=== PATIENT | female | born 1965 | race Caucasian/White ===

== ENCOUNTER 2021-04-03 18:31 | Inpatient (IN) | payer SELFPAY ==
[2021-04-03] MEDS ORDERED: Morphine 4 MG/ML VIAL ONE (19:32)
[2021-04-03 20:32] LABS: Hemoglobin 11.3 g/dL (12.0-15.5); Mean Corpuscular HGB CONC 32.1 g/dL (32.0-36.0); Mean Corpuscular Hemoglobin 26.2 pg (27.0-33.0); Mean Corpuscular Volume 81.5 fl (81.6-98.3); Mean Platelet Volume 9.8 fl (7.4-10.4); Platelet Count 345 10x3/uL (150-450); Red Blood Cell (RBC) Count 4.32 10x6/uL (3.90-5.03); White Blood Cell (WBC) Count 12.8 10x3/uL (3.5-10.5)
[2021-04-03 20:33] LABS: ALT (SGPT) 32 U/L (8-55); AST (SGOT) 26 U/L (5-34); Albumin 3.8 g/dL (3.5-5.0); Alkaline Phosphatase 178 U/L (40-110); Anion Gap 19 mmol/L (10-20); BUN (Urea Nitrogen) 21 mg/dL (9.8-20.1); Bilirubin, Total 0.9 mg/dL (0.2-1.2); Calc. Creatinine Clearance 0 mL/min (70-130); Calcium 8.9 mg/dL (7.8-10.44); Carbon Dioxide 23 mmol/L (22-29); Chloride 96 mmol/L (98-107); Globulin 3.9 g/dL (2.4-3.5); Glucose 111 mg/dL (70-105); Lipase 12 U/L (8-78); Potassium 3.6 mmol/L (3.5-5.1); Protein, Total 7.7 g/dL (6.0-8.3); Sodium 134 mmol/L (136-145)
[2021-04-03 22:04] LABS: Bilirubin Neg (Negative); Blood, Urine 50 (Negative); Clarity Slightly Cloudy (Clear); Glucose, Urine (Dipstick) Normal (Negative); Ketone, Urine 50 mg/dL (Negative); Leukocyte Negative (Negative); Nitrite Negative (Negative); Protein, Urine (Dipstick) 100 mg/dl (Neg-Trace)
[2021-04-03 22:34] LABS: Bacteria/HPF 3+ HPF (None Seen); RBC/HPF 0-3 HPF (0-3); Squamous Epithelial 0-3 HPF (0-3)
[2021-04-03 22:35] LABS: Mucous/LPF 1+ LPF (<2+)
[2021-04-03 22:46] LABS: Lymphocytes 3 % (21-51)
[2021-04-03 22:47] LABS: Band 29 % (5-11); Reactive Lymphocytes 2 % (0-10)
[2021-04-03 22:48] LABS: Metamyelocyte 2 % (0-0); Monocytes 4 % (0-10); Neutrophil 60 % (42-75)
[2021-04-03 22:50] LABS: Anisocytosis SLIGHT = 6-15 cells (100X) (0-5/hpf); Dohle Bodies SLIGHT; Microcytosis SLIGHT = 6-15 cells (100X) (0-5/hpf); Platelet Morphology Comment Appears Adequate; Toxic Granulation SLIGHT
[2021-04-03 22:51] LABS: MDiff Complete? YES; Platelet Clumps SLIGHT
[2021-04-03] MEDS ORDERED: Piperacillin/Tazobactam 4.5 GM VIAL ONE (23:43)
[2021-04-04 01:17] VITALS: BMI 23.8
[2021-04-04 01:22] LABS: SARS-CoV-2 NAA Rapid Test Not Detected (NotDetected)
[2021-04-04] MEDS ORDERED: Ondansetron PF 4 MG/2 ML Vial IVP PRN ×2 (01:26→09:21)
[2021-04-04] MEDS ORDERED: Acetaminophen 325 MG TAB PO PRN (01:27)
[2021-04-04] MEDS ORDERED: Sodium Chloride 0.9% 1,000 ML IV SCH (01:30)
[2021-04-04] MEDS ORDERED: Piperacillin/Tazobactam 3.375 GM in Sodium Chloride 0.9% 100 ML IVPB SCH ×2 (05:00→10:30)
[2021-04-04 08:34] LABS: Hemoglobin 9.6 g/dL (12.0-15.5); Mean Corpuscular HGB CONC 32.9 g/dL (32.0-36.0); Mean Corpuscular Hemoglobin 26.4 pg (27.0-33.0); Mean Corpuscular Volume 80.2 fl (81.6-98.3); Mean Platelet Volume 9.7 fl (7.4-10.4); Platelet Count 268 10x3/uL (150-450); RBC Distribution Width 14.4 % (11.5-14.5); Red Blood Cell (RBC) Count 3.64 10x6/uL (3.90-5.03); White Blood Cell (WBC) Count 11.6 10x3/uL (3.5-10.5)
[2021-04-04 08:54] LABS: MDiff Complete? YES
[2021-04-04 09:01] LABS: Anion Gap 18 mmol/L (10-20); BUN (Urea Nitrogen) 16 mg/dL (9.8-20.1); Calc. Creatinine Clearance 84 mL/min (70-130); Calcium 7.2 mg/dL (7.8-10.44); Carbon Dioxide 18 mmol/L (22-29); Chloride 104 mmol/L (98-107); Glucose 93 mg/dL (70-105); Potassium 3.9 mmol/L (3.5-5.1); Sodium 136 mmol/L (136-145)
[2021-04-04 09:02] LABS: Band 13 % (5-11); Lymphocytes 6 % (21-51); Monocytes 3 % (0-10); Neutrophil 78 % (42-75)
[2021-04-04 09:04] LABS: Hypochromia SLIGHT = 6-15 cells (100X) (0-5/hpf); Polychromasia SLIGHT = 2-3 cells (100X) (0-2/hpf)
[2021-04-04 09:05] LABS: Anisocytosis SLIGHT = 6-15 cells (100X) (0-5/hpf); Dohle Bodies SLIGHT; Microcytosis SLIGHT = 6-15 cells (100X) (0-5/hpf); Platelet Morphology Comment Appears Adequate; Toxic Granulation SLIGHT
[2021-04-04] MEDS ORDERED: Promethazine HCl 25 MG/ML VIAL IM PRN (09:21)
[2021-04-04] MEDS ORDERED: hydrALAZINE 20 MG/ML VIAL SLOW IVP PRN (09:21)
[2021-04-04] MEDS ORDERED: Enoxaparin Sodium 40 MG/0.4 ML SYRINGE SC SCH (10:00)
[2021-04-04] MEDS: D5 1/2 NS w/20 mEq KCL 1,000 ML IV SCH ×2 (11:13→16:52)
[2021-04-04] MEDS: Piperacillin/Tazobactam 3.375 GM in Sodium Chloride 0.9% 100 ML IVPB SCH ×2 (14:40→21:26)
[2021-04-04] MEDS: Famotidine 20 MG TAB PO SCH (21:16)
[2021-04-05] MEDS: Famotidine/PF 20 mg/2ml Vial SLOW IVP SCH ×3 (03:15→20:31)
[2021-04-05 04:25] LABS: Hemoglobin 8.8 g/dL (12.0-15.5); Mean Corpuscular Hemoglobin 26.1 pg (27.0-33.0); Mean Corpuscular Volume 81.6 fl (81.6-98.3); Mean Platelet Volume 9.8 fl (7.4-10.4); Platelet Count 295 10x3/uL (150-450); RBC Distribution Width 14.7 % (11.5-14.5); Red Blood Cell (RBC) Count 3.37 10x6/uL (3.90-5.03); White Blood Cell (WBC) Count 12.3 10x3/uL (3.5-10.5)
[2021-04-05 04:38] LABS: Anion Gap 13 mmol/L (10-20); BUN (Urea Nitrogen) 12 mg/dL (9.8-20.1); Calc. Creatinine Clearance 81 mL/min (70-130); Carbon Dioxide 21 mmol/L (22-29); Chloride 106 mmol/L (98-107); Glucose 206 mg/dL (70-105); Potassium 3.3 mmol/L (3.5-5.1); Sodium 137 mmol/L (136-145)
[2021-04-05 05:02] LABS: Band 26 % (5-11); Lymphocytes 5 % (21-51); Monocytes 4 % (0-10); Myelocyte 1 % (0-0); Neutrophil 63 % (42-75); Reactive Lymphocytes 1 % (0-10)
[2021-04-05 05:04] LABS: Anisocytosis SLIGHT = 6-15 cells (100X) (0-5/hpf); Dohle Bodies SLIGHT; Hypochromia SLIGHT = 6-15 cells (100X) (0-5/hpf); Microcytosis SLIGHT = 6-15 cells (100X) (0-5/hpf); Toxic Granulation SLIGHT
[2021-04-05 05:05] LABS: Large Platelets SLIGHT; Platelet Clumps SLIGHT; Platelet Morphology Comment Appears Adequate
[2021-04-05 05:06] LABS: MDiff Complete? YES; Polychromasia SLIGHT = 2-3 cells (100X) (0-2/hpf)
[2021-04-05] MEDS: Piperacillin/Tazobactam 3.375 GM in Sodium Chloride 0.9% 100 ML IVPB SCH ×3 (05:06→20:31)
[2021-04-05] MEDS: D5 1/2 NS w/20 mEq KCL 1,000 ML IV SCH ×3 (06:51→17:08)
[2021-04-05] MEDS ORDERED: Acetaminophen 325 MG TAB PO PRN (09:25)
[2021-04-05] MEDS: Famotidine 20 MG TAB PO SCH ×2 (09:35→21:41)
[2021-04-05] MEDS: Enoxaparin Sodium 40 MG/0.4 ML SYRINGE SC SCH (09:35)
[2021-04-05] MEDS: Morphine 4 MG/ML VIAL SLOW IVP PRN (19:41)
[2021-04-06] MEDS ORDERED: D5 1/2 NS w/20 mEq KCL 1,000 ML ONE (00:08)
[2021-04-06] MEDS: D5 1/2 NS w/20 mEq KCL 1,000 ML IV SCH ×3 (03:17→21:09)
[2021-04-06] MEDS: Piperacillin/Tazobactam 3.375 GM in Sodium Chloride 0.9% 100 ML IVPB SCH ×3 (05:28→21:08)
[2021-04-06] MEDS: Famotidine/PF 20 mg/2ml Vial SLOW IVP SCH ×2 (09:20→21:07)
[2021-04-06] MEDS: Famotidine 20 MG TAB PO SCH ×2 (09:32→21:08)
[2021-04-06] MEDS: Enoxaparin Sodium 40 MG/0.4 ML SYRINGE SC SCH (13:43)
[2021-04-06] MEDS ORDERED: Dexamethasone 4 mg/ml Vial ONE (13:51)
[2021-04-06] MEDS ORDERED: Fentanyl 250 MCG/5 ML VIAL ONE (13:51)
[2021-04-06] MEDS ORDERED: Rocuronium Bromide 10 MG/ML (10ML VIAL) ONE (13:51)
[2021-04-06] MEDS ORDERED: Ondansetron PF 4 MG/2 ML Vial ONE (13:51)
[2021-04-06] MEDS ORDERED: PROPOFOL 20 ML ONE (13:51)
[2021-04-06] MEDS ORDERED: Midazolam HCl 2 mg/2 ml Vial ONE (13:51)
[2021-04-06] MEDS ORDERED: Lidocaine 1% PF 5 ML VIAL ONE (13:51)
[2021-04-06] MEDS ORDERED: PHENYLEPHRINE-NS 100 MCG/ML 10 ML SYRINGE ONE ×2 (14:45→17:20)
[2021-04-06] MEDS ORDERED: Dexmedetomidine 200 MCG/2 ML VIAL ONE (16:30)
[2021-04-06] MEDS ORDERED: Ketorolac Tromethamine 30 MG/ML VIAL ONE (16:35)
[2021-04-06] MEDS ORDERED: Glycopyrrolate 0.2 MG/ML 5 ML SYRINGE ONE (16:45)
[2021-04-06] MEDS ORDERED: HYDROcodone/Acetaminophen 5/325 mg Tablet PO PRN (17:56)
[2021-04-06] MEDS ORDERED: Morphine 2 MG/ML VIAL SLOW IVP PRN (17:56)
[2021-04-06] MEDS: Morphine 4 MG/ML VIAL SLOW IVP PRN (18:40)
[2021-04-07] MEDS: Morphine 4 MG/ML VIAL SLOW IVP PRN ×3 (00:59→20:22)
[2021-04-07 04:24] LABS: Hemoglobin 8.4 g/dL (12.0-15.5); Mean Corpuscular HGB CONC 32.6 g/dL (32.0-36.0); Mean Corpuscular Hemoglobin 25.9 pg (27.0-33.0); Mean Corpuscular Volume 79.6 fl (81.6-98.3); Platelet Count 388 10x3/uL (150-450); RBC Distribution Width 15.1 % (11.5-14.5); Red Blood Cell (RBC) Count 3.24 10x6/uL (3.90-5.03); White Blood Cell (WBC) Count 15.7 10x3/uL (3.5-10.5)
[2021-04-07 04:39] LABS: MDiff Complete? YES
[2021-04-07 04:43] LABS: Band 33 % (5-11); Lymphocytes 8 % (21-51); Monocytes 3 % (0-10); Myelocyte 1 % (0-0); Neutrophil 53 % (42-75); Reactive Lymphocytes 2 % (0-10)
[2021-04-07 04:44] LABS: Platelet Morphology Comment Appears Adequate
[2021-04-07 04:48] LABS: RBC Morphology Normal
[2021-04-07 05:01] LABS: Anion Gap 16 mmol/L (10-20); BUN (Urea Nitrogen) 15 mg/dL (9.8-20.1); Calc. Creatinine Clearance 88 mL/min (70-130); Calcium 7.2 mg/dL (7.8-10.44); Carbon Dioxide 21 mmol/L (22-29); Chloride 106 mmol/L (98-107); Glucose 210 mg/dL (70-105); Potassium 3.7 mmol/L (3.5-5.1); Sodium 139 mmol/L (136-145)
[2021-04-07] MEDS: Piperacillin/Tazobactam 3.375 GM in Sodium Chloride 0.9% 100 ML IVPB SCH ×3 (05:54→22:58)
[2021-04-07] MEDS: D5 1/2 NS w/20 mEq KCL 1,000 ML IV SCH ×2 (05:56→14:54)
[2021-04-07] MEDS ORDERED: Sodium Chloride 0.9% 500 ML IV SCH ×2 (09:00→17:00)
[2021-04-07] MEDS: Famotidine 20 MG TAB PO SCH ×2 (10:51→20:22)
[2021-04-07] MEDS: Polyethylene Glycol 3350 17 GM Packet PO SCH (10:51)
[2021-04-07] MEDS: Enoxaparin Sodium 40 MG/0.4 ML SYRINGE SC SCH (13:12)
[2021-04-07] MEDS: Famotidine/PF 20 mg/2ml Vial SLOW IVP SCH ×2 (13:12→22:59)
[2021-04-08] MEDS: D5 1/2 NS w/20 mEq KCL 1,000 ML IV SCH ×4 (01:14→23:07)
[2021-04-08 04:09] LABS: Anion Gap 11 mmol/L (10-20); BUN (Urea Nitrogen) 11 mg/dL (9.8-20.1); Calc. Creatinine Clearance 99 mL/min (70-130); Carbon Dioxide 25 mmol/L (22-29); Chloride 110 mmol/L (98-107); Glucose 112 mg/dL (70-105); Potassium 3.7 mmol/L (3.5-5.1); Sodium 142 mmol/L (136-145)
[2021-04-08 04:20] LABS: Hemoglobin 7.6 g/dL (12.0-15.5); Mean Corpuscular HGB CONC 31.9 g/dL (32.0-36.0); Mean Corpuscular Hemoglobin 25.8 pg (27.0-33.0); Mean Corpuscular Volume 80.7 fl (81.6-98.3); Mean Platelet Volume 9.5 fl (7.4-10.4); Platelet Count 390 10x3/uL (150-450); RBC Distribution Width 15.6 % (11.5-14.5); Red Blood Cell (RBC) Count 2.95 10x6/uL (3.90-5.03); White Blood Cell (WBC) Count 13.6 10x3/uL (3.5-10.5)
[2021-04-08 05:20] LABS: MDiff Complete? YES
[2021-04-08 05:24] LABS: Band 6 % (5-11); Lymphocytes 16 % (21-51); Monocytes 7 % (0-10); Neutrophil 71 % (42-75)
[2021-04-08 05:26] LABS: Hypochromia SLIGHT = 6-15 cells (100X) (0-5/hpf); Platelet Morphology Comment Appears Adequate
[2021-04-08] MEDS: Piperacillin/Tazobactam 3.375 GM in Sodium Chloride 0.9% 100 ML IVPB SCH ×3 (05:39→21:27)
[2021-04-08] MEDS: Enoxaparin Sodium 40 MG/0.4 ML SYRINGE SC SCH (09:27)
[2021-04-08] MEDS: Famotidine 20 MG TAB PO SCH ×2 (09:27→21:27)
[2021-04-08] MEDS: Polyethylene Glycol 3350 17 GM Packet PO SCH (09:27)
[2021-04-08] MEDS: Morphine 4 MG/ML VIAL SLOW IVP PRN (09:28)
[2021-04-08] MEDS: Famotidine/PF 20 mg/2ml Vial SLOW IVP SCH ×2 (09:28→21:29)
[2021-04-08] MEDS ORDERED: Piperacillin/Tazobactam 3.375 GM VIAL ONE (20:21)
[2021-04-08] MEDS ORDERED: D5 1/2 NS w/20 mEq KCL 1,000 ML ONE (21:56)
[2021-04-09] MEDS: Piperacillin/Tazobactam 3.375 GM in Sodium Chloride 0.9% 100 ML IVPB SCH ×3 (05:14→22:20)
[2021-04-09] MEDS: D5 1/2 NS w/20 mEq KCL 1,000 ML IV SCH ×2 (06:59→19:14)
[2021-04-09 08:52] LABS: Hemoglobin 8.3 g/dL (12.0-15.5); Mean Corpuscular HGB CONC 31.6 g/dL (32.0-36.0); Mean Corpuscular Hemoglobin 26.2 pg (27.0-33.0); Mean Platelet Volume 9.5 fl (7.4-10.4); Platelet Count 520 10x3/uL (150-450); RBC Distribution Width 15.4 % (11.5-14.5); Red Blood Cell (RBC) Count 3.17 10x6/uL (3.90-5.03); White Blood Cell (WBC) Count 10.9 10x3/uL (3.5-10.5)
[2021-04-09 08:58] LABS: Phosphorus 2.8 mg/dL (2.3-4.7)
[2021-04-09 08:59] LABS: Anion Gap 13 mmol/L (10-20); BUN (Urea Nitrogen) 6 mg/dL (9.8-20.1); Calc. Creatinine Clearance 93 mL/min (70-130); Calcium 7.5 mg/dL (7.8-10.44); Carbon Dioxide 26 mmol/L (22-29); Chloride 104 mmol/L (98-107); Glucose 142 mg/dL (70-105); Potassium 3.6 mmol/L (3.5-5.1); Sodium 139 mmol/L (136-145)
[2021-04-09 09:10] LABS: MDiff Complete? YES
[2021-04-09 09:14] LABS: Band 3 % (5-11); Eosinophils 3 % (0-10); Lymphocytes 12 % (21-51); Metamyelocyte 1 % (0-0); Monocytes 6 % (0-10); Neutrophil 75 % (42-75); Nucleated RBC 2 % (0)
[2021-04-09] MEDS ORDERED: D5 1/2 NS w/20 mEq KCL 1,000 ML IV SCH (09:15)
[2021-04-09 09:16] LABS: Platelet Morphology Comment Appears Increased
[2021-04-09 09:17] LABS: Hypochromia SLIGHT = 6-15 cells (100X) (0-5/hpf); Polychromasia SLIGHT = 2-3 cells (100X) (0-2/hpf)
[2021-04-09] MEDS: Enoxaparin Sodium 40 MG/0.4 ML SYRINGE SC SCH (10:21)
[2021-04-09] MEDS: Polyethylene Glycol 3350 17 GM Packet PO SCH (10:22)
[2021-04-09] MEDS: Famotidine 20 MG TAB PO SCH ×2 (10:22→22:46)
[2021-04-09] MEDS: Famotidine/PF 20 mg/2ml Vial SLOW IVP SCH ×2 (12:35→22:21)
[2021-04-10] MEDS: D5 1/2 NS w/20 mEq KCL 1,000 ML IV SCH (06:07)
[2021-04-10] MEDS: Piperacillin/Tazobactam 3.375 GM in Sodium Chloride 0.9% 100 ML IVPB SCH ×3 (06:08→21:36)
[2021-04-10] MEDS ORDERED: Morphine 4 MG/ML VIAL SLOW IVP SCH (07:15)
[2021-04-10] MEDS: Enoxaparin Sodium 40 MG/0.4 ML SYRINGE SC SCH (10:24)
[2021-04-10] MEDS: Polyethylene Glycol 3350 17 GM Packet PO SCH (10:24)
[2021-04-10] MEDS: Famotidine 20 MG TAB PO SCH ×2 (10:24→21:37)
[2021-04-10] MEDS: Famotidine/PF 20 mg/2ml Vial SLOW IVP SCH ×2 (11:26→21:36)
[2021-04-11] MEDS: Piperacillin/Tazobactam 3.375 GM in Sodium Chloride 0.9% 100 ML IVPB SCH (05:42)
[2021-04-11] MEDS: Famotidine 20 MG TAB PO SCH (12:11)
[2021-04-11] MEDS: Enoxaparin Sodium 40 MG/0.4 ML SYRINGE SC SCH (12:11)
[2021-04-11] MEDS: Polyethylene Glycol 3350 17 GM Packet PO SCH (12:11)
[2021-04-11 19:43] VITALS: TEMP 97.8
[2021-04-11 19:44] VITALS: BP 117/62
== END 2021-04-11 15:55 | disposition home or self-care (01) | DRG 329 ==
LOC: CSHERS 18:31 → CSHTELE 04-04 01:07
PROVIDERS: ADMIT Specialist; ATTEND Specialist
PROC: 0DTN0ZZ Resection of Sigmoid Colon, Open Approach (ICD-10-PCS; principal; 2021-04-06)
PROC: 0D1E0Z4 Bypass Large Intestine to Cutaneous, Open Approach (ICD-10-PCS; 2021-04-06)
PROC: 0W9G0ZZ Drainage of Peritoneal Cavity, Open Approach (ICD-10-PCS; 2021-04-06)
PROC: 0DQP0ZZ Repair Rectum, Open Approach (ICD-10-PCS; 2021-04-06)
DX: K57.20 Diverticulitis of large intestine with perforation and abscess without bleeding (principal); K65.1 Peritoneal abscess; C18.7 Malignant neoplasm of sigmoid colon; C77.2 Secondary and unspecified malignant neoplasm of intra-abdominal lymph nodes; Z20.822 Contact with and (suspected) exposure to COVID-19
CPT/HCPCS: 36415; 74177; 80048; 80053; 81003; 81015; 82378; 83690; 83735; 84100; 85025; 86850; 86900; 86901; 88309; 94760; 96365; 96375; J1100; J1650; J1885; J2250; J2270; J2405; J2543; J2704; J3010; J3480; J3490; J7030; S0028; U0002

== ENCOUNTER 2021-05-03 08:15 | Outpatient (CLI) | payer SELFPAY ==
[2021-05-04 10:59] LABS: SARS-CoV-2 PCR by NAA Not Detected (NotDetected)
== END 2021-05-03 08:16 | disposition home or self-care (01) ==
LOC: CSHLAB 08:15
PROVIDERS: ATTEND Surgery
DX: Z20.822 Contact with and (suspected) exposure to COVID-19 (principal); C18.7 Malignant neoplasm of sigmoid colon
CPT/HCPCS: U0003; U0005

== ENCOUNTER 2021-05-04 06:27 | Day surgery (SDC) | payer OTHER ==
[2021-04-30 14:59] VITALS: BMI 23.0
[2021-05-04] MEDS ORDERED: EPINEPHrine 1 MG/ML AMP ONE (06:32)
[2021-05-04] MEDS ORDERED: Bupivacaine 0.25% HCL 30 ML VIAL ONE (06:32)
[2021-05-04] MEDS ORDERED: Lidocaine 2% PF 5 ML VIAL ONE (07:06)
[2021-05-04] MEDS ORDERED: Fentanyl 100 MCG/2 ML VIAL ONE (07:06)
[2021-05-04] MEDS ORDERED: Dexamethasone 4 mg/ml Vial ONE (07:06)
[2021-05-04] MEDS ORDERED: Ondansetron PF 4 MG/2 ML Vial ONE (07:06)
[2021-05-04] MEDS ORDERED: PROPOFOL 40 ML ONE (07:06)
[2021-05-04] MEDS ORDERED: ePHEDrine Sulfate 50 MG/10 ML VIAL ONE (07:40)
== END 2021-05-04 09:10 | disposition home or self-care (01) ==
LOC: CSHSDC 06:27
PROVIDERS: ATTEND Surgery
DX: C18.7 Malignant neoplasm of sigmoid colon (principal); Z93.3 Colostomy status
CPT/HCPCS: 76000; C1788; J0171; J0690; J1100; J1642; J2001; J2405; J2704; J3010; S0020

== ENCOUNTER 2021-05-06 13:29 | Inpatient (IN) | payer OTHER, SELFPAY ==
[2021-05-06 14:00] LABS: #Monocytes 0.3 10x3/uL (0.0-1.1); #Neutrophils 5.1 10x3/uL (1.5-8.4); %Basophils 0.1 % (0.0-2.0); %Lymphocytes 29.6 % (18.0-47.0); %Monocytes 4.1 % (0.0-10.0); %Neutrophils 65.8 % (40.0-75.0); Hemoglobin 10.3 g/dL (12.0-15.5); Mean Corpuscular HGB CONC 30.2 g/dL (32.0-36.0); Mean Corpuscular Hemoglobin 25.8 pg (27.0-33.0); Mean Corpuscular Volume 85.3 fl (81.6-98.3); Mean Platelet Volume 9.2 fl (7.4-10.4); Platelet Count 274 10x3/uL (150-450); RBC Distribution Width 15.4 % (11.5-14.5); White Blood Cell (WBC) Count 7.8 10x3/uL (3.5-10.5)
[2021-05-06 14:19] LABS: ALT (SGPT) 18 U/L (8-55); AST (SGOT) 18 U/L (5-34); Acetaminophen Less than 6.0 mcg/mL (10.0-30.0); Albumin 4.1 g/dL (3.5-5.0); Alcohol Less than 10 mg/dL (Less than 10); Alkaline Phosphatase 77 U/L (40-110); Anion Gap 24 mmol/L (10-20); BUN (Urea Nitrogen) 14 mg/dL (9.8-20.1); Bilirubin, Total 0.8 mg/dL (0.2-1.2); CK (CPK) 59 U/L (29-168); Calc. Creatinine Clearance 0 mL/min (70-130); Calcium 8.7 mg/dL (7.8-10.44); Carbon Dioxide 17 mmol/L (22-29); Chloride 99 mmol/L (98-107); Globulin 2.7 g/dL (2.4-3.5); Glucose 194 mg/dL (70-105); Lipase 106 U/L (8-78); Potassium 3.7 mmol/L (3.5-5.1); Protein, Total 6.8 g/dL (6.0-8.3); Salicylate Less than 8.0 mg/dL (15.0-30.0); Sodium 136 mmol/L (136-145)
[2021-05-06 14:23] LABS: Bilirubin Neg (Negative); Blood, Urine Negative (Negative); Clarity Clear (Clear); Glucose, Urine (Dipstick) Normal (Negative); Ketone, Urine Negative (Negative); Leukocyte Negative (Negative); Nitrite Negative (Negative); Protein, Urine (Dipstick) Negative (Neg-Trace); Urobilinogen Normal mg/dL (Less than 2); pH, Urine 6.5 (5.0-9.0)
[2021-05-06 14:33] LABS: CKMB 1.2 ng/mL (0-6.6)
[2021-05-06 14:37] LABS: PTT 30.5 sec (22.0-33.0); Prothrombin Time 11.3 sec (9.5-12.1)
[2021-05-06] MEDS ORDERED: Cefepime 2 GM VIAL ONE (14:46)
[2021-05-06] MEDS ORDERED: Aspirin Chewable 81 MG TAB ONE (14:46)
[2021-05-06 14:48] LABS: Amphetamine Not Detected (NotDetected); Barbiturates Screen Not Detected (NotDetected); Benzodiazepine Screen Not Detected (NotDetected); Cocaine Metabolite Screen Not Detected (NotDetected); Methadone Not Detected (NotDetected); Methamphetamine Not Detected (NotDetected); Opiate Screen Not Detected (NotDetected); Oxycodone Screen Not Detected (NotDetected); Phencyclidine (PCP) Not Detected (NotDetected); THC/Cannabinoid Screen Not Detected (NotDetected); Tricyclic Screen Not Detected (NotDetected)
[2021-05-06 15:20] LABS: SARS-CoV-2 NAA Rapid Test Not Detected (NotDetected)
[2021-05-06 17:37] LABS: Lactic Acid 2.1 mmol/L (0.5-2.2)
[2021-05-06] MEDS ORDERED: Ondansetron PF 4 MG/2 ML Vial IVP PRN (18:54)
[2021-05-06] MEDS ORDERED: Acetaminophen 650 MG Suppository PR PRN (18:54)
[2021-05-06] MEDS ORDERED: Acetaminophen 325 MG TAB PO PRN (18:54)
[2021-05-06] MEDS ORDERED: Ondansetron ODT 4 MG TAB PO PRN (18:54)
[2021-05-06 20:17] LABS: CKMB 1.7 ng/mL (0-6.6)
[2021-05-06 20:21] VITALS: BMI 22.6
[2021-05-06] MEDS: levETIRAcetam in NS 1,000 MG in Premix Bag 1 BAG IVPB SCH (20:49)
[2021-05-06] MEDS: Sodium Chloride 0.9% 1,000 ML IV SCH (20:49)
[2021-05-07 04:33] LABS: Anion Gap 14 mmol/L (10-20); BUN (Urea Nitrogen) 16 mg/dL (9.8-20.1); Calc. Creatinine Clearance 61 mL/min (70-130); Carbon Dioxide 23 mmol/L (22-29); Chloride 103 mmol/L (98-107); Glucose 104 mg/dL (70-105); Potassium 3.5 mmol/L (3.5-5.1); Sodium 136 mmol/L (136-145)
[2021-05-07 04:34] LABS: #Monocytes 0.1 10x3/uL (0.0-1.1); %Basophils 0.3 % (0.0-2.0); %Lymphocytes 46.6 % (18.0-47.0); %Monocytes 4.1 % (0.0-10.0); Hemoglobin 9.2 g/dL (12.0-15.5); Mean Corpuscular HGB CONC 31.2 g/dL (32.0-36.0); Mean Corpuscular Volume 83.3 fl (81.6-98.3); Mean Platelet Volume 9.6 fl (7.4-10.4); Platelet Count 208 10x3/uL (150-450); RBC Distribution Width 15.4 % (11.5-14.5); Red Blood Cell (RBC) Count 3.54 10x6/uL (3.90-5.03); White Blood Cell (WBC) Count 3.4 10x3/uL (3.5-10.5)
[2021-05-07] MEDS ORDERED: Prevnar 13-Val Conj/PF 0.5 ML SYRINGE IM ONE (06:30)
[2021-05-07] MEDS: levETIRAcetam in NS 1,000 MG in Premix Bag 1 BAG IVPB SCH ×2 (09:19→20:51)
[2021-05-07] MEDS: Sodium Chloride 0.9% 1,000 ML IV SCH ×2 (09:19→22:03)
[2021-05-07] MEDS ORDERED: Metoclopramide HCl 10 MG/2 ML VIAL IVP PRN (13:39)
[2021-05-07] MEDS: D5 1/2 NS w/20 mEq KCL 1,000 ML IV SCH (14:21)
[2021-05-08] MEDS: D5 1/2 NS w/20 mEq KCL 1,000 ML IV SCH ×2 (03:05→15:21)
[2021-05-08 04:34] LABS: #Monocytes 0.1 10x3/uL (0.0-1.1); #Neutrophils 2.5 10x3/uL (1.5-8.4); %Basophils 0.3 % (0.0-2.0); %Lymphocytes 33.4 % (18.0-47.0); %Monocytes 2.1 % (0.0-10.0); %Neutrophils 63.9 % (40.0-75.0); Mean Corpuscular Hemoglobin 26.2 pg (27.0-33.0); Mean Corpuscular Volume 81.7 fl (81.6-98.3); Mean Platelet Volume 9.4 fl (7.4-10.4); Platelet Count 188 10x3/uL (150-450); Red Blood Cell (RBC) Count 3.44 10x6/uL (3.90-5.03); White Blood Cell (WBC) Count 3.9 10x3/uL (3.5-10.5)
[2021-05-08 04:41] LABS: Anion Gap 12 mmol/L (10-20); BUN (Urea Nitrogen) 15 mg/dL (9.8-20.1); Calc. Creatinine Clearance 68 mL/min (70-130); Calcium 8.1 mg/dL (7.8-10.44); Carbon Dioxide 25 mmol/L (22-29); Chloride 100 mmol/L (98-107); Glucose 118 mg/dL (70-105); Potassium 3.1 mmol/L (3.5-5.1); Sodium 134 mmol/L (136-145)
[2021-05-08] MEDS: levETIRAcetam in NS 1,000 MG in Premix Bag 1 BAG IVPB SCH ×2 (08:51→21:19)
[2021-05-08] MEDS: Sodium Chloride 0.9% 1,000 ML IV SCH ×2 (10:07→23:26)
[2021-05-08] MEDS: Metoclopramide HCl 10 MG/2 ML VIAL IVP SCH ×2 (15:21→21:19)
[2021-05-09 05:24] LABS: #Monocytes 0.1 10x3/uL (0.0-1.1); %Basophils 0.3 % (0.0-2.0); %Lymphocytes 40.5 % (18.0-47.0); Hemoglobin 9.9 g/dL (12.0-15.5); Mean Corpuscular HGB CONC 31.7 g/dL (32.0-36.0); Mean Corpuscular Hemoglobin 25.6 pg (27.0-33.0); Mean Corpuscular Volume 80.8 fl (81.6-98.3); Mean Platelet Volume 8.9 fl (7.4-10.4); Platelet Count 211 10x3/uL (150-450); RBC Distribution Width 14.3 % (11.5-14.5); Red Blood Cell (RBC) Count 3.86 10x6/uL (3.90-5.03)
[2021-05-09 05:28] LABS: Anion Gap 12 mmol/L (10-20); BUN (Urea Nitrogen) 8 mg/dL (9.8-20.1); Calc. Creatinine Clearance 78 mL/min (70-130); Calcium 8.4 mg/dL (7.8-10.44); Carbon Dioxide 28 mmol/L (22-29); Chloride 99 mmol/L (98-107); Glucose 121 mg/dL (70-105); Potassium 3.1 mmol/L (3.5-5.1); Sodium 136 mmol/L (136-145)
[2021-05-09 05:34] LABS: %Neutrophils 56.2 % (40.0-75.0)
[2021-05-09 05:35] LABS: #Neutrophils 1.7 10x3/uL (1.5-8.4)
[2021-05-09] MEDS: D5 1/2 NS w/20 mEq KCL 1,000 ML IV SCH (06:02)
[2021-05-09] MEDS: Metoclopramide HCl 10 MG/2 ML VIAL IVP SCH (06:02)
[2021-05-09] MEDS ORDERED: Metoclopramide HCl 10 MG/2 ML VIAL IVP PRN (07:30)
[2021-05-09] MEDS ORDERED: D5 1/2 NS w/40 mEq KCL 1,000 ML IV SCH (07:30)
[2021-05-09] MEDS: levETIRAcetam in NS 1,000 MG in Premix Bag 1 BAG IVPB SCH (09:59)
[2021-05-09] MEDS ORDERED: Potassium Chloride 10 MEQ in Premix Bag 1 BAG IVPB SCH ×2 (11:00→14:45)
[2021-05-09] MEDS: Sodium Chloride 0.9% 1,000 ML IV SCH (12:44)
[2021-05-09 14:13] LABS: Anion Gap 13 mmol/L (10-20); BUN (Urea Nitrogen) 7 mg/dL (9.8-20.1); Calc. Creatinine Clearance 74 mL/min (70-130); Calcium 8.6 mg/dL (7.8-10.44); Carbon Dioxide 29 mmol/L (22-29); Chloride 98 mmol/L (98-107); Glucose 124 mg/dL (70-105); Sodium 137 mmol/L (136-145)
[2021-05-09] MEDS ORDERED: Potassium Chloride 20 MEQ TAB PO SCH (14:45)
[2021-05-09 16:28] VITALS: BP 106/65; TEMP 98.1
[2021-05-09 18:02] LABS: Anion Gap 14 mmol/L (10-20); BUN (Urea Nitrogen) 6 mg/dL (9.8-20.1); Calc. Creatinine Clearance 73 mL/min (70-130); Calcium 8.5 mg/dL (7.8-10.44); Carbon Dioxide 28 mmol/L (22-29); Chloride 99 mmol/L (98-107); Glucose 127 mg/dL (70-105); Potassium 3.6 mmol/L (3.5-5.1); Sodium 137 mmol/L (136-145)
== END 2021-05-09 19:39 | disposition home or self-care (01) | DRG 100 ==
LOC: CSHERS 13:29 → CSHTELE 20:12
PROVIDERS: ADMIT Family Medicine; ATTEND Physician Assistant
DX: R56.9 Unspecified convulsions (principal); G93.41 Metabolic encephalopathy; E87.2 Acidosis; N17.9 Acute kidney failure, unspecified; C18.9 Malignant neoplasm of colon, unspecified; E86.0 Dehydration; R11.2 Nausea with vomiting, unspecified; Z20.822 Contact with and (suspected) exposure to COVID-19; T45.1X5A Adverse effect of antineoplastic and immunosuppressive drugs, initial encounter; Z92.21 Personal history of antineoplastic chemotherapy; Z90.49 Acquired absence of other specified parts of digestive tract; Z93.3 Colostomy status
CPT/HCPCS: 0240U; 36415; 36416; 70450; 70553; 71045; 74177; 80048; 80053; 80306; 80307; 81003; 82550; 82553; 83605; 83690; 84146; 84443; 84484; 85025; 85610; 85730; 87040; 87086; 93005; 93306; 94760; J0692; J1953; J2405; J2765; J3370; J3480; J7050